=== PATIENT | female | born 1970 | race Caucasian/White ===

== ENCOUNTER 2016-12-31 18:32 | Emergency (ER) | payer OTHER ==
[2016-12-31] MEDS ORDERED: Cyclobenzaprine 10 MG TAB ONE (19:00)
[2016-12-31] MEDS ORDERED: Ketorolac Tromethamine 60 MG/2 ML VIAL ONE (19:00)
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
== END 2016-12-31 19:50 | disposition home or self-care (01) ==
LOC: MADERS 18:32
DX: S16.1XXA Strain of muscle, fascia and tendon at neck level, initial encounter (principal); E78.5 Hyperlipidemia, unspecified; G43.909 Migraine, unspecified, not intractable, without status migrainosus; Z79.899 Other long term (current) drug therapy; V89.2XXA Person injured in unspecified motor-vehicle accident, traffic, initial encounter
CPT/HCPCS: 72125; 96372; J1885